=== PATIENT | female | born 1995 | race Caucasian/White ===

== ENCOUNTER → 2018-05-31 | Outpatient (CLI) | payer OTHER ==
--- NOTE | 2018-05-31 13:38 | RAD ---
Today transabdominal transvaginal pelvic ultrasound 05/31/2018 INDICATION: Right lower quadrant pain COMPARISON STUDY: None FINDINGS: . Ultrasound evaluation of the pelvis was performed transabdominally and transvaginally. Static images are submitted to PACS. Visualized bladder is unremarkable. Uterus measures 6.6 x 3.4 x 4.5 cm. Endometrial thickness is approximately 7 mm. Correlate with phase of menstrual cycle.No uterine masses other focal abnormal normalities are seen. Right ovary measures 3.3 x 1.6 x 1.9 cm. Left ovary measures 2.8 x 1.7 x 2.4 cm. Blood flow to the ovaries is unremarkable in color Doppler imaging. No significant free fluid is seen in the pelvis. Normal ovarian follicles appear to be present. IMPRESSION: Unremarkable sonographic appearance of the pelvis Electronically signed by: Miguel Brewster MD (05/31/2018 1:35 PM) [id number]
== END | disposition home or self-care (01) ==
LOC: US 10:45
PROVIDERS: ATTEND Family Medicine
DX: R10.31 Right lower quadrant pain (principal)
CPT/HCPCS: 76830; 76856